=== PATIENT | female | born 1965 | race Hispanic/Latino ===

== ENCOUNTER 2021-04-22 16:59 | Inpatient (IN) | payer MEDICARE ==
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
[2021-04-23] MEDS ORDERED: NON-FORMULARY EACH (Acetaminophen [Tylenol] 325 MG Capsule) PO PRN (08:31)
[2021-04-23] MEDS ORDERED: INSULIN ASPART 100 UNIT/ML SQ SCH (08:45)
[2021-04-23] MEDS: ASPIRIN EC 81 MG TAB PO SCH (09:52)
[2021-04-23] MEDS: PANTOPRAZOLE 40 MG TAB PO SCH ×2 (09:52→21:21)
[2021-04-23] MEDS: MULTIVITAMINS,THER W-MINERALS TAB PO SCH (09:52)
[2021-04-23] MEDS: SERTRALINE 100 MG TAB PO SCH (09:52)
[2021-04-23] MEDS ORDERED: RAMIPRIL 10 MG PO SCH (10:00)
[2021-04-23] MEDS ORDERED: NON-FORMULARY EACH (Multivitamin With Minerals [Hair, Skin And Nails] 1 EACH Tablet) PO SCH (10:00)
[2021-04-23] MEDS: LISINOPRIL 20 MG TAB PO SCH (10:03)
--- NOTE | 2021-04-23 13:46 | Consultation ---
History of Present Illness - Reason for Consult Consult date: 04/23/21 DM Requesting physician: CARISA VALDERRAMA - History of Present Illness Patient is 56 year old female current admitted for Bipolar disorder, paranoia, presented to referring facility with fatigue, auditory hallucination, visual hallucination, was felt to be delusional, Multiple medication, Allergies. Patient has a history of HTN, DM, HYPERLIPIDEMIA, HYPOTHYRODISIM. We are requested to come evaluate the patient. She denies any chest pain, shortness of breath. Past History Past Medical History: hyperthyroidism, hypertension, hyperlipidemia Past Surgical History: Other Social history: no significant social history Family history: no significant family history Medications and Allergies Allergies Allergy/AdvReac Type Severity Reaction Status Date / Time ragweed pollen Allergy Unknown Verified 04/23/21 00:58 acetaminophen [From Percocet] AdvReac Unknown Verified 04/23/21 00:58 amoxicillin AdvReac Unknown Verified 04/23/21 00:58 aripiprazole [From Abilify] AdvReac Unknown Verified 04/23/21 00:58 cephalexin AdvReac Unknown Verified 04/23/21 00:58 heparin AdvReac Unknown Verified 04/23/21 00:58 lithium AdvReac Unknown Verified 04/23/21 00:58 olanzapine [From Zyprexa] AdvReac Unknown Verified 04/23/21 00:58 oxcarbazepine AdvReac Unknown Verified 04/23/21 00:58 [From Trileptal] oxycodone [From Percocet] AdvReac Unknown Verified 04/23/21 00:58 Penicillins AdvReac Unknown Verified 04/23/21 00:58 quetiapine [From Seroquel] AdvReac Unknown Verified 04/23/21 00:58 risperidone AdvReac Unknown Verified 04/23/21 00:58 valacyclovir [From Valtrex] AdvReac Unknown Verified 04/23/21 00:58 ziprasidone [From Geodon] AdvReac Unknown Verified 04/23/21 00:58 Home Medications Medication Instructions Recorded Confirmed Last Taken Type Acetaminophen [Tylenol] 650 mg PO Q6HR PRN 04/23/21 04/23/21 Unknown History Aspirin EC [Halfprin EC] 81 mg PO QDAY 04/23/21 04/23/21 Unknown History AtorvaSTATin [Lipitor] 20 mg PO QHS 04/23/21 04/23/21 Unknown History Divalproex ER [DepaKOTE ER] 500 mg PO TID 04/23/21 04/23/21 Unknown History Insulin Aspart 100 unit SQ UNK 04/23/21 04/23/21 Unknown History Multivitamin with Minerals [Hair, 1 each PO DAILY 04/23/21 04/23/21 Unknown History Skin and Nails] Pantoprazole [Protonix] 40 mg PO BID 04/23/21 04/23/21 Unknown History Sertraline [Zoloft] 100 mg PO QDAY 04/23/21 04/23/21 Unknown History ramipriL [Ramipril] 10 mg PO DAILY 04/23/21 04/23/21 Unknown History Active Meds: Active Medications Acetaminophen (Acetaminophen 325 Mg Tab) 650 mg PO Q6H PRN PRN Reason: Pain , Severe (7-10) Aspirin (Aspirin Ec 81 Mg Tab) 81 mg PO QDAY [facility] Last Admin: 04/23/21 09:52 Dose: 81 mg Documented by: Atorvastatin Calcium (Atorvastatin 20 Mg Tab) 20 mg PO QHS [facility] Divalproex Sodium (Divalproex Er 500 Mg Tab) 500 mg PO TID [facility] Lisinopril (Lisinopril 20 Mg Tab) 20 mg PO QDAY [facility] Last Admin: 04/23/21 10:03 Dose: 20 mg Documented by: Miscellaneous Medication (Insulin Aspart [Insulin Aspart]) 100 unit SQ UNK [facility] Multivitamins/Minerals (Multivitamins,Ther W-Minerals Tab) 1 each PO QDAY [facility] Last Admin: 04/23/21 09:52 Dose: 1 each Documented by: Pantoprazole Sodium (Pantoprazole 40 Mg Tab) 40 mg PO BID [facility] Last Admin: 04/23/21 09:52 Dose: Not Given Documented by: Sertraline HCl (Sertraline 100 Mg Tab) 100 mg PO QDAY [facility] Last Admin: 04/23/21 09:52 Dose: 100 mg Documented by: Review of Systems All systems: negative Exam - Physical Exam Narrative exam: VITAL SIGNS: Reviewed. GENERAL: The patient appears normally developed, Vital signs as documented. HEAD: No signs of head trauma. EYES: Pupils are equal. Extraocular motions intact. EARS: Hearing grossly intact. MOUTH: Oropharynx is normal. NECK: No adenopathy, no JVD. CHEST: Chest with clear breath sounds bilaterally. No wheezes, rales, or rhonchi. CARDIAC: Regular rate and rhythm. S1 and S2, without murmurs, gallops, or rubs. VASCULAR: No Edema. Peripheral pulses normal and equal in all extremities. ABDOMEN: Soft, non tender and non distended. No rebound or guarding, and no masses palpated. Bowel Sounds normal. MUSCULOSKELETAL: Good range of motion of all major joints. Extremities without clubbing, cyanosis or edema. NEUROLOGIC EXAM: Alert and oriented x 3 No focal sensory or strength deficits. Speech normal. Follows commands. PSYCHIATRIC: Mood normal. SKIN: detail exam as documented in skin assessment - Constitutional Vitals: Temp Pulse Resp BP Pulse Ox 99.0 F 72 20 168/81 93 04/23/21 07:40 04/23/21 10:03 04/23/21 07:40 04/23/21 10:03 04/23/21 07:40 General appearance: Present: no acute distress Results - Labs Labs: Abnormal lab results 04/23/21 04/23/21 Range/Units 06:04 11:37 POC Glucose 206 H 238 H (70-105) mg/dL Assessment and Plan Patient is 56 year old female current admitted for Bipolar disorder, paranoia, presented to referring facility with fatigue, auditory hallucination, visual hallucination, was felt to be delusional, Multiple medication, Allergies. Patient has a history of HTN, DM, HYPERLIPIDEMIA, HYPOTHYRODISIM. We are requested to come evaluate the patient. She denies any chest pain, shortness of breath. Hypertension, Diabetes mellitus, hyperlipidemia, hypothyroidism Acute psychosis plan Continue supportive care, Continue home medications Monitor Blood sugar closely Patient denies hx of Hypothyrodisim, Will check TSH, FREE T4
[2021-04-23] MEDS ORDERED: DEXTROSE 50% IN WATER (25GM) 50 ML SYRINGE IV PRN (14:00)
[2021-04-23] MEDS: DIVALPROEX ER 500 MG TAB PO SCH ×2 (14:05→20:45)
[2021-04-23] MEDS: ACETAMINOPHEN 325 MG TAB PO PRN (14:45)
[2021-04-23] MEDS: INSULIN LISPRO 100 UNIT/ML SUB-Q SCH ×2 (16:33→22:00)
[2021-04-24] MEDS: INSULIN LISPRO 100 UNIT/ML SUB-Q SCH ×4 (08:44→23:15)
[2021-04-24] MEDS: INSULIN NPH/REGULAR 70/30 INJ SUB-Q SCH ×2 (08:45→17:04)
--- NOTE | 2021-04-24 08:46 | Progress Note ---
Subjective Date of service: 04/24/21 Subjective Comment: 04/24/21: The patient is seen in bed this morning,she reports feeling weak. She continues to present with looseness of association. She denies any current suicidal/homicidal ideation and denies hallucinations. REVIEW OF SYSTEMS Constitutional: Negative for weight loss ENT: Negative for stridor Respiratory: Negative for cough or hemoptysis All other systems reviewed and are negative MENTAL STATUS EXAMINATION General Appearance and Behavior: Age appropriate, wearing appropriate clothes, good eye contact, anxious and cooperative Mood: paranoid Affect and affective range: congruent with stated mood Thought Process: looseness of association Thought Content: Not suicidal Speech:Normal Suicidal Ideation: Denies Homicidal Ideation: Denies Hallucinations: Denies Delusions: Yes Impulse Control: normal Insight and Judgment: Limited Memory/Cognition: Limited Attention: Normal Orientation: Alert, oriented Assessment (1)Bipolar Disorder (2) (3) Current Visit: Yes Status: Acute Treatment Plan Patient admitted for inpatient psychiatric evaluation, medication adjustment and close monitoring The patient's behavior, mood, sleep and appetite will be closely monitored. Patient enrolled in individual and group therapeutic sessions and encouraged to attend. Patient provided with a safe and structured environment. Patient's physical health needs will be addressed by the Hospitalist. Hospitalist Consulted Labs including CBC, CMP, Lipid profile and Hemoglobin A1C levels ordered for baseline reference Social Assessment will be completed and the Paper Supervisor will work with patient and family to ensure a suitable and safe disposition Medication adjustment will be made as clinically indicated Continue home meds Usual Wellness Jainism/Preservation: - Start Trazodone 50 mg po QHS & 50 mg po QHS PRN between 10 PM & 2 AM for insomnia - Start Melatonin 5 mg po QHS to promote circadian rhythm The patient agreed on the treatment plan, understood the risk, benefit, alternative treatment, potential consequence of no treatment, and gave informed consent. Estimated days:6 Post hospital care: primary care provider, psychiatric provider Case staffed with Dr. Simons Legal Status: Voluntary Reaction to Hospitalization: Accepting Medications and Allergies Medications and Allergies Allergies Allergy/AdvReac Type Severity Reaction Status Date / Time ragweed pollen Allergy Unknown Verified 04/23/21 00:58 acetaminophen [From Percocet] AdvReac Unknown Verified 04/23/21 00:58 amoxicillin AdvReac Unknown Verified 04/23/21 00:58 aripiprazole [From Abilify] AdvReac Unknown Verified 04/23/21 00:58 cephalexin AdvReac Unknown Verified 04/23/21 00:58 heparin AdvReac Unknown Verified 04/23/21 00:58 lithium AdvReac Unknown Verified 04/23/21 00:58 olanzapine [From Zyprexa] AdvReac Unknown Verified 04/23/21 00:58 oxcarbazepine AdvReac Unknown Verified 04/23/21 00:58 [From Trileptal] oxycodone [From Percocet] AdvReac Unknown Verified 04/23/21 00:58 Penicillins AdvReac Unknown Verified 04/23/21 00:58 quetiapine [From Seroquel] AdvReac Unknown Verified 04/23/21 00:58 risperidone AdvReac Unknown Verified 04/23/21 00:58 valacyclovir [From Valtrex] AdvReac Unknown Verified 04/23/21 00:58 ziprasidone [From Geodon] AdvReac Unknown Verified 04/23/21 00:58 Home Medications Medication Instructions Recorded Confirmed Last Taken Type Acetaminophen [Tylenol] 650 mg PO Q6HR PRN 04/23/21 04/23/21 Unknown History Aspirin EC [Halfprin EC] 81 mg PO QDAY 04/23/21 04/23/21 Unknown History AtorvaSTATin [Lipitor] 20 mg PO QHS 04/23/21 04/23/21 Unknown History Divalproex ER [DepaKOTE ER] 500 mg PO TID 04/23/21 04/23/21 Unknown History Insulin Aspart 100 unit SQ UNK 04/23/21 04/23/21 Unknown History Multivitamin with Minerals [Hair, 1 each PO DAILY 04/23/21 04/23/21 Unknown History Skin and Nails] Pantoprazole [Protonix] 40 mg PO BID 04/23/21 04/23/21 Unknown History Sertraline [Zoloft] 100 mg PO QDAY 04/23/21 04/23/21 Unknown History ramipriL [Ramipril] 10 mg PO DAILY 04/23/21 04/23/21 Unknown History Active Meds: Active Medications Acetaminophen (Acetaminophen 325 Mg Tab) 650 mg PO Q6H PRN PRN Reason: Pain , Severe (7-10) Last Admin: 04/23/21 14:45 Dose: 650 mg Documented by: Aspirin (Aspirin Ec 81 Mg Tab) 81 mg PO QDAY [facility] Last Admin: 04/23/21 09:52 Dose: 81 mg Documented by: Atorvastatin Calcium (Atorvastatin 20 Mg Tab) 20 mg PO QHS [facility] Last Admin: 04/23/21 21:21 Dose: 20 mg Documented by: Dextrose (Dextrose 50% In Water (25gm) 50 Ml Syringe) 50 ml IV Q30MIN PRN; Protocol PRN Reason: Hypoglycemia Divalproex Sodium (Divalproex Er 500 Mg Tab) 500 mg PO TID [facility] Last Admin: 04/23/21 20:45 Dose: 500 mg Documented by: Insulin Human Isoph/Insulin Regular (Insulin Nph/Regular 70/30 Inj) 15 unit SUB-Q BIDDIAB [facility] Insulin Human Lispro (Insulin Lispro 100 Unit/Ml) 0 unit SUB-Q ACHS [facility]; Protocol Last Admin: 04/23/21 22:00 Dose: 4 unit Documented by: Lisinopril (Lisinopril 20 Mg Tab) 20 mg PO QDAY [facility] Last Admin: 04/23/21 10:03 Dose: 20 mg Documented by: Multivitamins/Minerals (Multivitamins,Ther W-Minerals Tab) 1 each PO QDAY [facility] Last Admin: 04/23/21 09:52 Dose: 1 each Documented by: Pantoprazole Sodium (Pantoprazole 40 Mg Tab) 40 mg PO BID [facility] Last Admin: 04/23/21 21:21 Dose: 40 mg Documented by: Sertraline HCl (Sertraline 100 Mg Tab) 100 mg PO QDAY [facility] Last Admin: 04/23/21 09:52 Dose: 100 mg Documented by: Results - Results Labs/Vitals: Laboratory Last Values POC Glucose 225 mg/dL (70-105) H 04/24/21 06:20 Last Vital Signs Temp 98.0 F 04/23/21 22:00 Pulse 80 04/23/21 22:00 Resp 18 04/23/21 22:00 BP 155/83 04/23/21 22:00 Pulse Ox 95 04/23/21 22:00
[2021-04-24] MEDS: PANTOPRAZOLE 40 MG TAB PO SCH ×3 (09:19→21:31)
[2021-04-24] MEDS: DIVALPROEX ER 500 MG TAB PO SCH ×3 (09:19→21:27)
[2021-04-24] MEDS: LISINOPRIL 20 MG TAB PO SCH (09:19)
[2021-04-24] MEDS: ASPIRIN EC 81 MG TAB PO SCH (09:19)
[2021-04-24] MEDS: SERTRALINE 100 MG TAB PO SCH (09:19)
[2021-04-24] MEDS: MULTIVITAMINS,THER W-MINERALS TAB PO SCH (09:19)
[2021-04-24 09:20] LABS: Basophils % (Auto) 0.3 % (0.0-1.8); Eosinophils # (Auto) 0.1 K/mm3 (0.0-0.4); Eosinophils % (Auto) 1.7 % (0.0-4.3); Hematocrit 42.1 % (30.3-42.9); Hemoglobin 13.8 gm/dl (10.1-14.3); Lymphocytes # (Auto) 1.6 K/mm3 (1.2-5.4); Lymphocytes % (Auto) 36.9 % (13.4-35.0); Mean Corpuscular HGB Conc 33 % (30-34); Mean Corpuscular Volume 88 fl (79-97); Monocytes # (Auto) 0.4 K/mm3 (0.0-0.8); Monocytes % (Auto) 8.3 % (0.0-7.3); Platelet Count 218 K/mm3 (140-440); Red Blood Count 4.78 M/mm3 (3.65-5.03); Red Cell Distribution Width 13.8 % (13.2-15.2)
[2021-04-24 09:47] LABS: Alanine Aminotransferase 10 units/L (7-56); Albumin 4.2 g/dL (3.9-5); BUN/Creatinine Ratio 20; Blood Urea Nitrogen 10 mg/dL (7-17); Calcium 9.5 mg/dL (8.4-10.2); Chol/HDL Ratio 6.03 %; HDL Cholesterol 33 mg/dL (40-59); Hemolysis Index 5; LDL Cholesterol,Direct 128 mg/dL (50-130)
--- NOTE | 2021-04-24 12:22 | Progress Note ---
Assessment and Plan Assessment and plan: Patient is 56 year old female current admitted for Bipolar disorder, paranoia, presented to referring facility with fatigue, auditory hallucination, visual hallucination, was felt to be delusional, Multiple medication, Allergies. Patient has a history of HTN, DM, HYPERLIPIDEMIA, HYPOTHYRODISIM. We are re quested to come evaluate the patient. She denies any chest pain, shortness of breath. Hypertension, Diabetes mellitus, hyperlipidemia, hypothyroidism Acute psychosis plan 04/24: Oral and intermediate to long-acting insulin for better blood sugar control continue supportive care, Continue home medications Monitor Blood sugar closely Patient denies hx of Hypothyrodisim, Will check TSH, FREE T4 History Interval history: patient seen and examined, no new complaints Hospitalist Physical - Physical exam Narrative exam: VITAL SIGNS: Reviewed. GENERAL: The patient appears normally developed, Vital signs as documented. HEAD: No signs of head trauma. EYES: Pupils are equal. Extraocular motions intact. EARS: Hearing grossly intact. MOUTH: Oropharynx is normal. NECK: No adenopathy, no JVD. CHEST: Chest with clear breath sounds bilaterally. No wheezes, rales, or rho nchi. CARDIAC: Regular rate and rhythm. S1 and S2, without murmurs, gallops, or rubs. VASCULAR: No Edema. Peripheral pulses normal and equal in all extremities. ABDOMEN: Soft, non tender and non distended. No rebound or guarding, and no masses palpated. Bowel Sounds normal. MUSCULOSKELETAL: Good range of motion of all major joints. Extremities without clubbing, cyanosis or edema. NEUROLOGIC EXAM: Alert and oriented x 3 No focal sensory or strength deficits. Speech normal. Follows commands. PSYCHIATRIC: Mood normal. SKIN: detail exam as documented in skin assessment - Constitutional Vitals: Temp Pulse Resp BP Pulse Ox 98.7 F 69 18 153/81 93 04/24/21 09:16 04/24/21 09:19 04/24/21 09:16 04/24/21 09:19 04/24/21 09:16 General appearance: Present: no acute distress Results - Labs CBC & Chem 7: 04/24/21 08:37 04/24/21 08:37 Labs: Laboratory Last Values WBC 4.3 K/mm3 (4.5-11.0) L 04/24/21 08:37 RBC 4.78 M/mm3 (3.65-5.03) 04/24/21 08:37 Hgb 13.8 gm/dl (10.1-14.3) 04/24/21 08:37 Hct 42.1 % (30.3-42.9) 04/24/21 08:37 MCV 88 fl (79-97) 04/24/21 08:37 MCH 29 pg (28-32) 04/24/21 08:37 MCHC 33 % (30-34) 04/24/21 08:37 RDW 13.8 % (13.2-15.2) 04/24/21 08:37 Plt Count 218 K/mm3 (140-440) 04/24/21 08:37 Lymph % (Auto) 36.9 % (13.4-35.0) H 04/24/21 08:37 Greene % (Auto) 8.3 % (0.0-7.3) H 04/24/21 08:37 Eos % (Auto) 1.7 % (0.0-4.3) 04/24/21 08:37 Baso % (Auto) 0.3 % (0.0-1.8) 04/24/21 08:37 Lymph # (Auto) 1.6 K/mm3 (1.2-5.4) 04/24/21 08:37 Greene # (Auto) 0.4 K/mm3 (0.0-0.8) 04/24/21 08:37 Eos # (Auto) 0.1 K/mm3 (0.0-0.4) 04/24/21 08:37 Baso # (Auto) 0.0 K/mm3 (0.0-0.1) 04/24/21 08:37 Seg Neutrophils % 52.8 % (40.0-70.0) 04/24/21 08:37 Seg Neutrophils # 2.3 K/mm3 (1.8-7.7) 04/24/21 08:37 Sodium 139 mmol/L (137-145) 04/24/21 08:37 Potassium 4.3 mmol/L (3.6-5.0) 04/24/21 08:37 Chloride 100.3 mmol/L (98-107) 04/24/21 08:37 Carbon Dioxide 24 mmol/L (22-30) 04/24/21 08:37 Anion Gap 19 mmol/L 04/24/21 08:37 BUN 10 mg/dL (7-17) 04/24/21 08:37 Creatinine 0.5 mg/dL (0.6-1.2) L 04/24/21 08:37 Estimated GFR > 60 ml/min 04/24/21 08:37 BUN/Creatinine Ratio 20 % 04/24/21 08:37 Glucose 250 mg/dL (65-100) H 04/24/21 08:37 POC Glucose 290 mg/dL (70-105) H 04/24/21 10:55 Hemoglobin A1c 7.5 % (4-6) H 04/24/21 08:37 Calcium 9.5 mg/dL (8.4-10.2) 04/24/21 08:37 Total Bilirubin 0.40 mg/dL (0.1-1.2) 04/24/21 08:37 AST 9 units/L (5-40) 04/24/21 08:37 ALT 10 units/L (7-56) 04/24/21 08:37 Alkaline Phosphatase 79 units/L (35-129) 04/24/21 08:37 Total Protein 7.0 g/dL (6.3-8.2) 04/24/21 08:37 Albumin 4.2 g/dL (3.9-5) 04/24/21 08:37 Albumin/Globulin Ratio 1.5 % 04/24/21 08:37 Triglycerides 274 mg/dL (2-149) H 04/24/21 08:37 Cholesterol 199 mg/dL (50-199) 04/24/21 08:37 LDL Cholesterol Direct 128 mg/dL (50-130) 04/24/21 08:37 HDL Cholesterol 33 mg/dL (40-59) L 04/24/21 08:37 Cholesterol/HDL Ratio 6.03 % 04/24/21 08:37 TSH 4.160 mlU/mL (0.270-4.200) 04/24/21 08:37 Free T4 0.90 ng/dL (0.76-1.46) 04/24/21 08:37 Brown/IV: Voiding Method Toilet Active Medications - Current Medications Current Medications: Generic Name Dose Route Start Last Admin Trade Name Freq PRN Reason Stop Dose Admin Acetaminophen 650 mg 04/23/21 13:00 04/23/21 14:45 Acetaminophen 325 Mg Tab PO 650 mg Q6H PRN Administration Pain , Severe (7-10) Aspirin 81 mg 04/23/21 10:00 04/24/21 09:19 Aspirin Ec 81 Mg Tab PO 81 mg QDAY [facility] Administration Atorvastatin Calcium 20 mg 04/23/21 22:00 04/23/21 21:21 Atorvastatin 20 Mg Tab PO 20 mg QHS [facility] Administration Dextrose 50 ml 04/23/21 14:00 Dextrose 50% In Water (25gm) 50 Ml Syringe IV Q30MIN PRN Hypoglycemia Protocol Divalproex Sodium 500 mg 04/23/21 14:00 04/24/21 09:19 Divalproex Er 500 Mg Tab PO 500 mg TID [facility] Administration Insulin Human Isoph/Insulin Regular 15 unit 04/24/21 09:00 04/24/21 08:45 Insulin Nph/Regular 70/30 Inj SUB-Q 15 unit BIDDIAB [facility] Administration Insulin Human Lispro 0 unit 04/23/21 16:30 04/24/21 08:44 Insulin Lispro 100 Unit/Ml SUB-Q 2 unit ACHS [facility] Administration Protocol Lisinopril 20 mg 04/23/21 10:00 04/24/21 09:19 Lisinopril 20 Mg Tab PO 20 mg QDAY [facility] Administration Multivitamins/Minerals 1 each 04/23/21 10:00 04/24/21 09:19 Multivitamins,Ther W-Minerals Tab PO 1 each QDAY [facility] Administration Pantoprazole Sodium 40 mg 04/23/21 10:00 04/24/21 09:19 Pantoprazole 40 Mg Tab PO 40 mg BID [facility] Administration Sertraline HCl 100 mg 04/23/21 10:00 04/24/21 09:19 Sertraline 100 Mg Tab PO 100 mg QDAY [facility] Administration Trazodone HCl 50 mg 04/24/21 22:00 Trazodone 50 Mg Tab PO QHS [facility]
[2021-04-24 14:49] LABS: Hepatitis C Virus Antibody Non-Reactive (NonReactive)
[2021-04-24 14:52] LABS: Hepatitis B Surface Antigen Nonreactive (Negative)
[2021-04-24] MEDS: ACETAMINOPHEN 325 MG TAB PO PRN (17:03)
[2021-04-24] MEDS: traZODone 50 MG TAB PO SCH (21:27)
[2021-04-25] MEDS: DIVALPROEX ER 500 MG TAB PO SCH ×3 (07:42→20:30)
[2021-04-25] MEDS: INSULIN LISPRO 100 UNIT/ML SUB-Q SCH ×4 (07:42→21:28)
[2021-04-25] MEDS: MULTIVITAMINS,THER W-MINERALS TAB PO SCH (10:01)
[2021-04-25] MEDS: SERTRALINE 100 MG TAB PO SCH (10:01)
[2021-04-25] MEDS: PANTOPRAZOLE 40 MG TAB PO SCH ×2 (10:01→21:27)
[2021-04-25] MEDS: ASPIRIN EC 81 MG TAB PO SCH (10:01)
[2021-04-25] MEDS: LISINOPRIL 20 MG TAB PO SCH (10:02)
[2021-04-25] MEDS: INSULIN NPH/REGULAR 70/30 INJ SUB-Q SCH ×2 (10:02→17:26)
--- NOTE | 2021-04-25 12:08 | Progress Note ---
Subjective Date of service: 04/25/21 Principal diagnosis: Bipolar Subjective Comment: The patient was seen today. She is hyperverbal and her speech is pressured. The patient says she is from [facility] and doesn't know why they had her admitted here. She denies SI/HI or hallucinations of any kind. The patient says they told her she was delusional, but states "delusions are false ideas, she has facts." Staff says the patient has been refusing her meds and thinks she's being poisoned, due to paranoia and suspicion. The patient's delusions is interrupting her plan of care and therefore, pose a risk to the patient's mental health. Will start an antipsychotic to treat delusions. REVIEW OF SYSTEMS Constitutional: Negative for weight loss ENT: Negative for stridor Respiratory: Negative for cough or hemoptysis All other systems reviewed and are negative MENTAL STATUS EXAMINATION General Appearance and Behavior: Age appropriate, wearing appropriate clothes, good eye contact, anxious and cooperative Mood: paranoid Affect and affective range: congruent with stated mood Thought Process: looseness of association Thought Content: Not suicidal Speech:Normal Suicidal Ideation: Denies Homicidal Ideation: Denies Hallucinations: Denies Delusions: Yes Impulse Control: normal Insight and Judgment: Limited Memory/Cognition: Limited Attention: Normal Orientation: Alert, oriented Assessment (1)Bipolar Disorder Current Visit: Yes Status: Acute Treatment Plan Patient admitted for inpatient psychiatric evaluation, medication adjustment and close monitoring The patient's behavior, mood, sleep and appetite will be closely monitored. Patient enrolled in individual and group therapeutic sessions and encouraged to attend. Patient provided with a safe and structured environment. Patient's physical health needs will be addressed by the Hospitalist. Hospitalist Consulted Labs including CBC, CMP, Lipid profile and Hemoglobin A1C levels ordered for baseline reference Valproic level 04/27 Social Assessment will be completed and the Friction Saw Operator will work with patient and family to ensure a suitable and safe disposition Medication adjustment will be made as clinically indicated Start Abilify 5mg po daily to decrease delusions/paranoia Usual Wellness [employer]/Preservation: - Start Trazodone 50 mg po QHS & 50 mg po QHS PRN between 10 PM & 2 AM for insomnia - Start Melatonin 5 mg po QHS to promote circadian rhythm The patient agreed on the treatment plan, understood the risk, benefit, alternative treatment, potential consequence of no treatment, and gave informed consent. Estimated days:6 Post hospital care: primary care provider, psychiatric provider Case staffed with Dr. Simons Medications and Allergies Allergies Allergy/AdvReac Type Severity Reaction Status Date / Time ragweed pollen Allergy Unknown Verified 04/23/21 00:58 acetaminophen [From Percocet] AdvReac Unknown Verified 04/23/21 00:58 amoxicillin AdvReac Unknown Verified 04/23/21 00:58 aripiprazole [From Abilify] AdvReac Unknown Verified 04/23/21 00:58 cephalexin AdvReac Unknown Verified 04/23/21 00:58 heparin AdvReac Unknown Verified 04/23/21 00:58 lithium AdvReac Unknown Verified 04/23/21 00:58 olanzapine [From Zyprexa] AdvReac Unknown Verified 04/23/21 00:58 oxcarbazepine AdvReac Unknown Verified 04/23/21 00:58 [From Trileptal] oxycodone [From Percocet] AdvReac Unknown Verified 04/23/21 00:58 Penicillins AdvReac Unknown Verified 04/23/21 00:58 quetiapine [From Seroquel] AdvReac Unknown Verified 04/23/21 00:58 risperidone AdvReac Unknown Verified 04/23/21 00:58 valacyclovir [From Valtrex] AdvReac Unknown Verified 04/23/21 00:58 ziprasidone [From Geodon] AdvReac Unknown Verified 04/23/21 00:58 Home Medications Medication Instructions Recorded Confirmed Last Taken Type Acetaminophen [Tylenol] 650 mg PO Q6HR PRN 04/23/21 04/23/21 Unknown History Aspirin EC [Halfprin EC] 81 mg PO QDAY 04/23/21 04/23/21 Unknown History AtorvaSTATin [Lipitor] 20 mg PO QHS 04/23/21 04/23/21 Unknown History Divalproex ER [DepaKOTE ER] 500 mg PO TID 04/23/21 04/23/21 Unknown History Insulin Aspart 100 unit SQ UNK 04/23/21 04/23/21 Unknown History Multivitamin with Minerals [Hair, 1 each PO DAILY 04/23/21 04/23/21 Unknown History Skin and Nails] Pantoprazole [Protonix] 40 mg PO BID 04/23/21 04/23/21 Unknown History Sertraline [Zoloft] 100 mg PO QDAY 04/23/21 04/23/21 Unknown History ramipriL [Ramipril] 10 mg PO DAILY 04/23/21 04/23/21 Unknown History Active Meds: Active Medications Acetaminophen (Acetaminophen 325 Mg Tab) 650 mg PO Q6H PRN PRN Reason: Pain , Severe (7-10) Last Admin: 04/24/21 17:03 Dose: 650 mg Documented by: Aspirin (Aspirin Ec 81 Mg Tab) 81 mg PO QDAY [facility] Last Admin: 04/25/21 10:01 Dose: 81 mg Documented by: Atorvastatin Calcium (Atorvastatin 20 Mg Tab) 20 mg PO QHS [facility] Last Admin: 04/24/21 21:27 Dose: 20 mg Documented by: Dextrose (Dextrose 50% In Water (25gm) 50 Ml Syringe) 50 ml IV Q30MIN PRN; Protocol PRN Reason: Hypoglycemia Divalproex Sodium (Divalproex Er 500 Mg Tab) 500 mg PO TID [facility] Last Admin: 04/25/21 07:42 Dose: 500 mg Documented by: Insulin Human Isoph/Insulin Regular (Insulin Nph/Regular 70/30 Inj) 15 unit SUB-Q BIDDIAB [facility] Last Admin: 04/25/21 10:02 Dose: 15 unit Documented by: Insulin Human Lispro (Insulin Lispro 100 Unit/Ml) 0 unit SUB-Q [facility]; Protocol Last Admin: 04/25/21 12:04 Dose: 2 unit Documented by: Lisinopril (Lisinopril 20 Mg Tab) 20 mg PO QDAY [facility] Last Admin: 04/25/21 10:02 Dose: 20 mg Documented by: Multivitamins/Minerals (Multivitamins,Ther W-Minerals Tab) 1 each PO QDAY [facility] Last Admin: 04/25/21 10:01 Dose: 1 each Documented by: Pantoprazole Sodium (Pantoprazole 40 Mg Tab) 40 mg PO BID [facility] Last Admin: 04/25/21 10:01 Dose: 40 mg Documented by: Sertraline HCl (Sertraline 100 Mg Tab) 100 mg PO QDAY [facility] Last Admin: 04/25/21 10:01 Dose: 100 mg Documented by: Trazodone HCl (Trazodone 50 Mg Tab) 50 mg PO QHS [facility] Last Admin: 04/24/21 21:27 Dose: 50 mg Documented by: Results - Results Labs/Vitals: Laboratory Last Values WBC 4.3 K/mm3 (4.5-11.0) L 04/24/21 08:37 RBC 4.78 M/mm3 (3.65-5.03) 04/24/21 08:37 Hgb 13.8 gm/dl (10.1-14.3) 04/24/21 08:37 Hct 42.1 % (30.3-42.9) 04/24/21 08:37 MCV 88 fl (79-97) 04/24/21 08:37 MCH 29 pg (28-32) 04/24/21 08:37 MCHC 33 % (30-34) 04/24/21 08:37 RDW 13.8 % (13.2-15.2) 04/24/21 08:37 Plt Count 218 K/mm3 (140-440) 04/24/21 08:37 Lymph % (Auto) 36.9 % (13.4-35.0) H 04/24/21 08:37 [place] % (Auto) 8.3 % (0.0-7.3) H 04/24/21 08:37 Eos % (Auto) 1.7 % (0.0-4.3) 04/24/21 08:37 Baso % (Auto) 0.3 % (0.0-1.8) 04/24/21 08:37 Lymph # (Auto) 1.6 K/mm3 (1.2-5.4) 04/24/21 08:37 [place] # (Auto) 0.4 K/mm3 (0.0-0.8) 04/24/21 08:37 Eos # (Auto) 0.1 K/mm3 (0.0-0.4) 04/24/21 08:37 Baso # (Auto) 0.0 K/mm3 (0.0-0.1) 04/24/21 08:37 Seg Neutrophils % 52.8 % (40.0-70.0) 04/24/21 08:37 Seg Neutrophils # 2.3 K/mm3 (1.8-7.7) 04/24/21 08:37 Sodium 139 mmol/L (137-145) 04/24/21 08:37 Potassium 4.3 mmol/L (3.6-5.0) 04/24/21 08:37 Chloride 100.3 mmol/L (98-107) 04/24/21 08:37 Carbon Dioxide 24 mmol/L (22-30) 04/24/21 08:37 Anion Gap 19 mmol/L 04/24/21 08:37 BUN 10 mg/dL (7-17) 04/24/21 08:37 Creatinine 0.5 mg/dL (0.6-1.2) L 04/24/21 08:37 Estimated GFR > 60 ml/min 04/24/21 08:37 BUN/Creatinine Ratio 20 % 04/24/21 08:37 Glucose 250 mg/dL (65-100) H 04/24/21 08:37 POC Glucose 233 mg/dL (70-105) H 04/25/21 11:36 Hemoglobin A1c 7.5 % (4-6) H 04/24/21 08:37 Calcium 9.5 mg/dL (8.4-10.2) 04/24/21 08:37 Total Bilirubin 0.40 mg/dL (0.1-1.2) 04/24/21 08:37 AST 9 units/L (5-40) 04/24/21 08:37 ALT 10 units/L (7-56) 04/24/21 08:37 Alkaline Phosphatase 79 units/L (35-129) 04/24/21 08:37 Total Protein 7.0 g/dL (6.3-8.2) 04/24/21 08:37 Albumin 4.2 g/dL (3.9-5) 04/24/21 08:37 Albumin/Globulin Ratio 1.5 % 04/24/21 08:37 Triglycerides 274 mg/dL (2-149) H 04/24/21 08:37 Cholesterol 199 mg/dL (50-199) 04/24/21 08:37 LDL Cholesterol Direct 128 mg/dL (50-130) 04/24/21 08:37 HDL Cholesterol 33 mg/dL (40-59) L 04/24/21 08:37 Cholesterol/HDL Ratio 6.03 % 04/24/21 08:37 TSH 4.160 mlU/mL (0.270-4.200) 04/24/21 08:37 Free T4 0.90 ng/dL (0.76-1.46) 04/24/21 08:37 Hepatitis A IgM Ab Non-reactive (NonReactive) 04/24/21 08:37 Hep Bs Antigen Nonreactive (Negative) 04/24/21 08:37 Hep B Core IgM Ab Non-reactive (NonReactive) 04/24/21 08:37 Hepatitis C Antibody Non-reactive (NonReactive) 04/24/21 08:37 Last Vital Signs Temp 98.2 F 04/25/21 09:45 Pulse 74 04/25/21 10:02 Resp 18 04/25/21 09:45 BP 146/81 04/25/21 10:02 Pulse Ox 94 04/25/21 09:45
[2021-04-25] MEDS ORDERED: ARIPiprazole 5 MG TAB PO SCH (14:00)
[2021-04-25] MEDS: ACETAMINOPHEN 325 MG TAB PO PRN (19:00)
[2021-04-25] MEDS: traZODone 50 MG TAB PO SCH (21:27)
[2021-04-26] MEDS: INSULIN LISPRO 100 UNIT/ML SUB-Q SCH ×4 (08:30→21:23)
--- NOTE | 2021-04-26 09:47 | Progress Note ---
Subjective Date of service: 04/26/21 Principal diagnosis: Bipolar Subjective Comment: The patient was seen today. She is more calm today than yesterday. She says she feels she has a UTI. The patient denies SI/HI or hallucinations of any kind. REVIEW OF SYSTEMS Constitutional: Negative for weight loss ENT: Negative for stridor Respiratory: Negative for cough or hemoptysis All other systems reviewed and are negative MENTAL STATUS EXAMINATION General Appearance and Behavior: Age appropriate, wearing appropriate clothes, good eye contact, anxious and cooperative Mood: paranoid Affect and affective range: congruent with stated mood Thought Process: looseness of association Thought Content: Not suicidal Speech:Normal Suicidal Ideation: Denies Homicidal Ideation: Denies Hallucinations: Denies Delusions: Yes Impulse Control: normal Insight and Judgment: Limited Memory/Cognition: Limited Attention: Normal Orientation: Alert, oriented Assessment (1)Bipolar Disorder Current Visit: Yes Status: Acute Treatment Plan Patient admitted for inpatient psychiatric evaluation, medication adjustment and close monitoring The patient's behavior, mood, sleep and appetite will be closely monitored. Patient enrolled in individual and group therapeutic sessions and encouraged to attend. Patient provided with a safe and structured environment. Patient's physical health needs will be addressed by the Hospitalist. Hospitalist Consulted Labs including CBC, CMP, Lipid profile and Hemoglobin A1C levels ordered for baseline reference Valproic level 04/27 UA ordered 04/26 Social Assessment will be completed and the Test Pilot will work with patient and family to ensure a suitable and safe disposition Medication adjustment will be made as clinically indicated Start Abilify 5mg po daily to decrease delusions/paranoia yesterday Usual Wellness [employer]/Preservation: - Start Trazodone 50 mg po QHS & 50 mg po QHS PRN between 10 PM & 2 AM for insomnia - Start Melatonin 5 mg po QHS to promote circadian rhythm The patient agreed on the treatment plan, understood the risk, benefit, alternative treatment, potential consequence of no treatment, and gave informed consent. Estimated days:6 Post hospital care: primary care provider, psychiatric provider Case staffed with Dr. Simons Medications and Allergies Allergies Allergy/AdvReac Type Severity Reaction Status Date / Time ragweed pollen Allergy Unknown Verified 04/23/21 00:58 acetaminophen [From Percocet] AdvReac Unknown Verified 04/23/21 00:58 amoxicillin AdvReac Unknown Verified 04/23/21 00:58 aripiprazole [From Abilify] AdvReac Unknown Verified 04/23/21 00:58 cephalexin AdvReac Unknown Verified 04/23/21 00:58 heparin AdvReac Unknown Verified 04/23/21 00:58 lithium AdvReac Unknown Verified 04/23/21 00:58 olanzapine [From Zyprexa] AdvReac Unknown Verified 04/23/21 00:58 oxcarbazepine AdvReac Unknown Verified 04/23/21 00:58 [From Trileptal] oxycodone [From Percocet] AdvReac Unknown Verified 04/23/21 00:58 Penicillins AdvReac Unknown Verified 04/23/21 00:58 quetiapine [From Seroquel] AdvReac Unknown Verified 04/23/21 00:58 risperidone AdvReac Unknown Verified 04/23/21 00:58 valacyclovir [From Valtrex] AdvReac Unknown Verified 04/23/21 00:58 ziprasidone [From Geodon] AdvReac Unknown Verified 04/23/21 00:58 Home Medications Medication Instructions Recorded Confirmed Last Taken Type Acetaminophen [Tylenol] 650 mg PO Q6HR PRN 04/23/21 04/23/21 Unknown History Aspirin EC [Halfprin EC] 81 mg PO QDAY 04/23/21 04/23/21 Unknown History AtorvaSTATin [Lipitor] 20 mg PO QHS 04/23/21 04/23/21 Unknown History Divalproex ER [DepaKOTE ER] 500 mg PO TID 04/23/21 04/23/21 Unknown History Insulin Aspart 100 unit SQ UNK 04/23/21 04/23/21 Unknown History Multivitamin with Minerals [Hair, 1 each PO DAILY 04/23/21 04/23/21 Unknown History Skin and Nails] Pantoprazole [Protonix] 40 mg PO BID 04/23/21 04/23/21 Unknown History Sertraline [Zoloft] 100 mg PO QDAY 04/23/21 04/23/21 Unknown History ramipriL [Ramipril] 10 mg PO DAILY 04/23/21 04/23/21 Unknown History Active Meds: Active Medications Acetaminophen (Acetaminophen 325 Mg Tab) 650 mg PO Q6H PRN PRN Reason: Pain , Severe (7-10) Last Admin: 04/25/21 19:00 Dose: 650 mg Documented by: Aspirin (Aspirin Ec 81 Mg Tab) 81 mg PO QDAY [facility] Last Admin: 04/25/21 10:01 Dose: 81 mg Documented by: Atorvastatin Calcium (Atorvastatin 20 Mg Tab) 20 mg PO QHS [facility] Last Admin: 04/25/21 21:27 Dose: 20 mg Documented by: Dextrose (Dextrose 50% In Water (25gm) 50 Ml Syringe) 50 ml IV Q30MIN PRN; Protocol PRN Reason: Hypoglycemia Divalproex Sodium (Divalproex Er 500 Mg Tab) 500 mg PO TID [facility] Last Admin: 04/25/21 20:30 Dose: 500 mg Documented by: Insulin Human Isoph/Insulin Regular (Insulin Nph/Regular 70/30 Inj) 15 unit SUB-Q BIDDIAB [facility] Last Admin: 04/25/21 17:26 Dose: Not Given Documented by: Insulin Human Lispro (Insulin Lispro 100 Unit/Ml) 0 unit SUB-Q ACHS [facility]; Protocol Last Admin: 04/25/21 21:28 Dose: 2 unit Documented by: Lisinopril (Lisinopril 20 Mg Tab) 20 mg PO QDAY [facility] Last Admin: 04/25/21 10:02 Dose: 20 mg Documented by: Multivitamins/Minerals (Multivitamins,Ther W-Minerals Tab) 1 each PO QDAY [facility] Last Admin: 04/25/21 10:01 Dose: 1 each Documented by: Pantoprazole Sodium (Pantoprazole 40 Mg Tab) 40 mg PO BID [facility] Last Admin: 04/25/21 21:27 Dose: Not Given Documented by: Sertraline HCl (Sertraline 100 Mg Tab) 100 mg PO QDAY [facility] Last Admin: 04/25/21 10:01 Dose: 100 mg Documented by: Trazodone HCl (Trazodone 50 Mg Tab) 50 mg PO QHS [facility] Last Admin: 04/25/21 21:27 Dose: Not Given Documented by: Results - Results Labs/Vitals: Laboratory Last Values WBC 4.3 K/mm3 (4.5-11.0) L 04/24/21 08:37 RBC 4.78 M/mm3 (3.65-5.03) 04/24/21 08:37 Hgb 13.8 gm/dl (10.1-14.3) 04/24/21 08:37 Hct 42.1 % (30.3-42.9) 04/24/21 08:37 MCV 88 fl (79-97) 04/24/21 08:37 MCH 29 pg (28-32) 04/24/21 08:37 MCHC 33 % (30-34) 04/24/21 08:37 RDW 13.8 % (13.2-15.2) 04/24/21 08:37 Plt Count 218 K/mm3 (140-440) 04/24/21 08:37 Lymph % (Auto) 36.9 % (13.4-35.0) H 04/24/21 08:37 [place] % (Auto) 8.3 % (0.0-7.3) H 04/24/21 08:37 Eos % (Auto) 1.7 % (0.0-4.3) 04/24/21 08:37 Baso % (Auto) 0.3 % (0.0-1.8) 04/24/21 08:37 Lymph # (Auto) 1.6 K/mm3 (1.2-5.4) 04/24/21 08:37 [place] # (Auto) 0.4 K/mm3 (0.0-0.8) 04/24/21 08:37 Eos # (Auto) 0.1 K/mm3 (0.0-0.4) 04/24/21 08:37 Baso # (Auto) 0.0 K/mm3 (0.0-0.1) 04/24/21 08:37 Seg Neutrophils % 52.8 % (40.0-70.0) 04/24/21 08:37 Seg Neutrophils # 2.3 K/mm3 (1.8-7.7) 04/24/21 08:37 Sodium 139 mmol/L (137-145) 04/24/21 08:37 Potassium 4.3 mmol/L (3.6-5.0) 04/24/21 08:37 Chloride 100.3 mmol/L (98-107) 04/24/21 08:37 Carbon Dioxide 24 mmol/L (22-30) 04/24/21 08:37 Anion Gap 19 mmol/L 04/24/21 08:37 BUN 10 mg/dL (7-17) 04/24/21 08:37 Creatinine 0.5 mg/dL (0.6-1.2) L 04/24/21 08:37 Estimated GFR > 60 ml/min 04/24/21 08:37 BUN/Creatinine Ratio 20 % 04/24/21 08:37 Glucose 250 mg/dL (65-100) H 04/24/21 08:37 POC Glucose 216 mg/dL (70-105) H 04/25/21 20:01 Hemoglobin A1c 7.5 % (4-6) H 04/24/21 08:37 Calcium 9.5 mg/dL (8.4-10.2) 04/24/21 08:37 Total Bilirubin 0.40 mg/dL (0.1-1.2) 04/24/21 08:37 AST 9 units/L (5-40) 04/24/21 08:37 ALT 10 units/L (7-56) 04/24/21 08:37 Alkaline Phosphatase 79 units/L (35-129) 04/24/21 08:37 Total Protein 7.0 g/dL (6.3-8.2) 04/24/21 08:37 Albumin 4.2 g/dL (3.9-5) 04/24/21 08:37 Albumin/Globulin Ratio 1.5 % 04/24/21 08:37 Triglycerides 274 mg/dL (2-149) H 04/24/21 08:37 Cholesterol 199 mg/dL (50-199) 04/24/21 08:37 LDL Cholesterol Direct 128 mg/dL (50-130) 04/24/21 08:37 HDL Cholesterol 33 mg/dL (40-59) L 04/24/21 08:37 Cholesterol/HDL Ratio 6.03 % 04/24/21 08:37 TSH 4.160 mlU/mL (0.270-4.200) 04/24/21 08:37 Free T4 0.90 ng/dL (0.76-1.46) 04/24/21 08:37 Hepatitis A IgM Ab Non-reactive (NonReactive) 04/24/21 08:37 Hep Bs Antigen Nonreactive (Negative) 04/24/21 08:37 Hep B Core IgM Ab Non-reactive (NonReactive) 04/24/21 08:37 Hepatitis C Antibody Non-reactive (NonReactive) 04/24/21 08:37 Last Vital Signs Temp 98.1 F 04/25/21 20:00 Pulse 78 04/25/21 20:00 Resp 16 04/25/21 20:00 BP 114/71 04/25/21 20:00 Pulse Ox 96 04/25/21 20:00
[2021-04-26] MEDS: LISINOPRIL 20 MG TAB PO SCH ×2 (11:48→12:02)
[2021-04-26] MEDS: SERTRALINE 100 MG TAB PO SCH (11:48)
[2021-04-26] MEDS: DIVALPROEX ER 500 MG TAB PO SCH ×4 (11:48→21:21)
[2021-04-26] MEDS: MULTIVITAMINS,THER W-MINERALS TAB PO SCH (11:49)
[2021-04-26] MEDS: ASPIRIN EC 81 MG TAB PO SCH (11:49)
[2021-04-26] MEDS: PANTOPRAZOLE 40 MG TAB PO SCH ×4 (11:49→21:26)
[2021-04-26] MEDS: INSULIN NPH/REGULAR 70/30 INJ SUB-Q SCH ×2 (11:57→18:21)
[2021-04-26] MEDS: ACETAMINOPHEN 325 MG TAB PO PRN (18:12)
[2021-04-26] MEDS: traZODone 50 MG TAB PO SCH ×2 (21:22→21:27)
[2021-04-27] MEDS: SERTRALINE 100 MG TAB PO SCH (09:17)
[2021-04-27] MEDS: MULTIVITAMINS,THER W-MINERALS TAB PO SCH (09:18)
[2021-04-27] MEDS: DIVALPROEX ER 500 MG TAB PO SCH ×4 (09:18→20:50)
[2021-04-27] MEDS: INSULIN NPH/REGULAR 70/30 INJ SUB-Q SCH ×2 (09:18→18:05)
[2021-04-27] MEDS: ASPIRIN EC 81 MG TAB PO SCH (09:18)
[2021-04-27] MEDS: INSULIN LISPRO 100 UNIT/ML SUB-Q SCH ×4 (09:19→22:10)
[2021-04-27] MEDS: PANTOPRAZOLE 40 MG TAB PO SCH ×2 (09:26→21:28)
[2021-04-27] MEDS: LISINOPRIL 20 MG TAB PO SCH (09:26)
--- NOTE | 2021-04-27 10:10 | Progress Note ---
Subjective Date of service: 04/27/21 Principal diagnosis: Bipolar Subjective Comment: The patient was seen today. She has a lot of somatic complaints, possibly delusions. She says her stomach is upset. She's also talking about she has bleeding gums due to an infected tooth. The patient still says she feels like she has a UTI. A UA was ordered yesterday. She also states her TBI causes her to "act like a mental health patient." She denies SI/HI or hallucinations of any kind. REVIEW OF SYSTEMS Constitutional: Negative for weight loss ENT: Negative for stridor Respiratory: Negative for cough or hemoptysis All other systems reviewed and are negative MENTAL STATUS EXAMINATION General Appearance and Behavior: Age appropriate, wearing appropriate clothes, good eye contact, anxious and cooperative Mood: paranoid Affect and affective range: congruent with stated mood Thought Process: looseness of association Thought Content: Not suicidal Speech:Normal Suicidal Ideation: Denies Homicidal Ideation: Denies Hallucinations: Denies Delusions: Yes Impulse Control: normal Insight and Judgment: Limited Memory/Cognition: Limited Attention: Normal Orientation: Alert, oriented Assessment (1)Bipolar Disorder Current Visit: Yes Status: Acute Treatment Plan Patient admitted for inpatient psychiatric evaluation, medication adjustment a nd close monitoring The patient's behavior, mood, sleep and appetite will be closely monitored. Patient enrolled in individual and group therapeutic sessions and encouraged to attend. Patient provided with a safe and structured environment. Patient's physical health needs will be addressed by the Hospitalist. Hospitalist Consulted Labs including CBC, CMP, Lipid profile and Hemoglobin A1C levels ordered for baseline reference Valproic level 04/27 UA ordered 04/26 Social Assessment will be completed and the Vocational Training Teacher will work with patient and family to ensure a suitable and safe disposition Medication adjustment will be made as clinically indicated was discontinued to stated allergy Abilify 5mg po daily Start Haldol 0.5mg po BID Usual Wellness [employer]: - Start Trazodone 50 mg po QHS & 50 mg po QHS PRN between 10 PM & 2 AM for insomnia - Start Melatonin 5 mg po QHS to promote circadian rhythm The patient agreed on the treatment plan, understood the risk, benefit, alternative treatment, potential consequence of no treatment, and gave informed consent. Estimated days:6 Post hospital care: primary care provider, psychiatric provider Case staffed with Dr. Simons Medications and Allergies Allergies Allergy/AdvReac Type Severity Reaction Status Date / Time ragweed pollen Allergy Unknown Verified 04/23/21 00:58 acetaminophen [From Percocet] AdvReac Unknown Verified 04/23/21 00:58 amoxicillin AdvReac Unknown Verified 04/23/21 00:58 aripiprazole [From Abilify] AdvReac Unknown Verified 04/23/21 00:58 cephalexin AdvReac Unknown Verified 04/23/21 00:58 heparin AdvReac Unknown Verified 04/23/21 00:58 lithium AdvReac Unknown Verified 04/23/21 00:58 olanzapine [From Zyprexa] AdvReac Unknown Verified 04/23/21 00:58 oxcarbazepine AdvReac Unknown Verified 04/23/21 00:58 [From Trileptal] oxycodone [From Percocet] AdvReac Unknown Verified 04/23/21 00:58 Penicillins AdvReac Unknown Verified 04/23/21 00:58 quetiapine [From Seroquel] AdvReac Unknown Verified 04/23/21 00:58 risperidone AdvReac Unknown Verified 04/23/21 00:58 valacyclovir [From Valtrex] AdvReac Unknown Verified 04/23/21 00:58 ziprasidone [From Geodon] AdvReac Unknown Verified 04/23/21 00:58 Home Medications Medication Instructions Recorded Confirmed Last Taken Type Acetaminophen [Tylenol] 650 mg PO Q6HR PRN 04/23/21 04/23/21 Unknown History Aspirin EC [Halfprin EC] 81 mg PO QDAY 04/23/21 04/23/21 Unknown History AtorvaSTATin [Lipitor] 20 mg PO QHS 04/23/21 04/23/21 Unknown History Divalproex ER [DepaKOTE ER] 500 mg PO TID 04/23/21 04/23/21 Unknown History Insulin Aspart 100 unit SQ UNK 04/23/21 04/23/21 Unknown History Multivitamin with Minerals [Hair, 1 each PO DAILY 04/23/21 04/23/21 Unknown History Skin and Nails] Pantoprazole [Protonix] 40 mg PO BID 04/23/21 04/23/21 Unknown History Sertraline [Zoloft] 100 mg PO QDAY 04/23/21 04/23/21 Unknown History ramipriL [Ramipril] 10 mg PO DAILY 04/23/21 04/23/21 Unknown History Active Meds: Active Medications Acetaminophen (Acetaminophen 325 Mg Tab) 650 mg PO Q6H PRN PRN Reason: Pain , Severe (7-10) Last Admin: 04/26/21 18:12 Dose: 650 mg Documented by: Aspirin (Aspirin Ec 81 Mg Tab) 81 mg PO QDAY [facility] Last Admin: 04/27/21 09:18 Dose: 81 mg Documented by: Atorvastatin Calcium (Atorvastatin 20 Mg Tab) 20 mg PO QHS [facility] Last Admin: 04/26/21 21:22 Dose: 20 mg Documented by: Dextrose (Dextrose 50% In Water (25gm) 50 Ml Syringe) 50 ml IV Q30MIN PRN; Protocol PRN Reason: Hypoglycemia Divalproex Sodium (Divalproex Er 500 Mg Tab) 500 mg PO TID [facility] Last Admin: 04/27/21 09:18 Dose: 500 mg Documented by: Insulin Human Isoph/Insulin Regular (Insulin Nph/Regular 70/30 Inj) 15 unit SUB-Q BIDDIAB [facility] Last Admin: 04/27/21 09:18 Dose: 15 unit Documented by: Insulin Human Lispro (Insulin Lispro 100 Unit/Ml) 0 unit SUB-Q ACHS [facility]; Protocol Last Admin: 04/27/21 09:19 Dose: 1 unit Documented by: Lisinopril (Lisinopril 20 Mg Tab) 20 mg PO QDAY [facility] Last Admin: 04/27/21 09:26 Dose: Not Given Documented by: Multivitamins/Minerals (Multivitamins,Ther W-Minerals Tab) 1 each PO QDAY [facility] Last Admin: 04/27/21 09:18 Dose: 1 each Documented by: Pantoprazole Sodium (Pantoprazole 40 Mg Tab) 40 mg PO BID [facility] Last Admin: 04/27/21 09:26 Dose: Not Given Documented by: Sertraline HCl (Sertraline 100 Mg Tab) 100 mg PO QDAY [facility] Last Admin: 04/27/21 09:17 Dose: 100 mg Documented by: Trazodone HCl (Trazodone 50 Mg Tab) 50 mg PO QHS [facility] Last Admin: 04/26/21 21:27 Dose: Not Given Documented by: Results - Results Labs/Vitals: Laboratory Last Values WBC 4.3 K/mm3 (4.5-11.0) L 04/24/21 08:37 RBC 4.78 M/mm3 (3.65-5.03) 04/24/21 08:37 Hgb 13.8 gm/dl (10.1-14.3) 04/24/21 08:37 Hct 42.1 % (30.3-42.9) 04/24/21 08:37 MCV 88 fl (79-97) 04/24/21 08:37 MCH 29 pg (28-32) 04/24/21 08:37 MCHC 33 % (30-34) 04/24/21 08:37 RDW 13.8 % (13.2-15.2) 04/24/21 08:37 Plt Count 218 K/mm3 (140-440) 04/24/21 08:37 Lymph % (Auto) 36.9 % (13.4-35.0) H 04/24/21 08:37 [place] % (Auto) 8.3 % (0.0-7.3) H 04/24/21 08:37 Eos % (Auto) 1.7 % (0.0-4.3) 04/24/21 08:37 Baso % (Auto) 0.3 % (0.0-1.8) 04/24/21 08:37 Lymph # (Auto) 1.6 K/mm3 (1.2-5.4) 04/24/21 08:37 [place] # (Auto) 0.4 K/mm3 (0.0-0.8) 04/24/21 08:37 Eos # (Auto) 0.1 K/mm3 (0.0-0.4) 04/24/21 08:37 Baso # (Auto) 0.0 K/mm3 (0.0-0.1) 04/24/21 08:37 Seg Neutrophils % 52.8 % (40.0-70.0) 04/24/21 08:37 Seg Neutrophils # 2.3 K/mm3 (1.8-7.7) 04/24/21 08:37 Sodium 139 mmol/L (137-145) 04/24/21 08:37 Potassium 4.3 mmol/L (3.6-5.0) 04/24/21 08:37 Chloride 100.3 mmol/L (98-107) 04/24/21 08:37 Carbon Dioxide 24 mmol/L (22-30) 04/24/21 08:37 Anion Gap 19 mmol/L 04/24/21 08:37 BUN 10 mg/dL (7-17) 04/24/21 08:37 Creatinine 0.5 mg/dL (0.6-1.2) L 04/24/21 08:37 Estimated GFR > 60 ml/min 04/24/21 08:37 BUN/Creatinine Ratio 20 % 04/24/21 08:37 Glucose 250 mg/dL (65-100) H 04/24/21 08:37 POC Glucose 194 mg/dL (70-105) H 04/27/21 06:25 Hemoglobin A1c 7.5 % (4-6) H 04/24/21 08:37 Calcium 9.5 mg/dL (8.4-10.2) 04/24/21 08:37 Total Bilirubin 0.40 mg/dL (0.1-1.2) 04/24/21 08:37 AST 9 units/L (5-40) 04/24/21 08:37 ALT 10 units/L (7-56) 04/24/21 08:37 Alkaline Phosphatase 79 units/L (35-129) 04/24/21 08:37 Total Protein 7.0 g/dL (6.3-8.2) 04/24/21 08:37 Albumin 4.2 g/dL (3.9-5) 04/24/21 08:37 Albumin/Globulin Ratio 1.5 % 04/24/21 08:37 Triglycerides 274 mg/dL (2-149) H 04/24/21 08:37 Cholesterol 199 mg/dL (50-199) 04/24/21 08:37 LDL Cholesterol Direct 128 mg/dL (50-130) 04/24/21 08:37 HDL Cholesterol 33 mg/dL (40-59) L 04/24/21 08:37 Cholesterol/HDL Ratio 6.03 % 04/24/21 08:37 TSH 4.160 mlU/mL (0.270-4.200) 04/24/21 08:37 Free T4 0.90 ng/dL (0.76-1.46) 04/24/21 08:37 Hepatitis A IgM Ab Non-reactive (NonReactive) 04/24/21 08:37 Hep Bs Antigen Nonreactive (Negative) 04/24/21 08:37 Hep B Core IgM Ab Non-reactive (NonReactive) 04/24/21 08:37 Hepatitis C Antibody Non-reactive (NonReactive) 04/24/21 08:37 Last Vital Signs Temp 99.2 F 04/26/21 19:10 Pulse 81 04/26/21 19:10 Resp 18 04/26/21 19:10 BP 146/69 04/26/21 19:10 Pulse Ox 86 04/26/21 19:10
[2021-04-27] MEDS: HALOPERIDOL 1 MG TAB PO SCH ×3 (12:25→21:27)
[2021-04-27 12:52] LABS: Bacteria,Urine 1+ /HPF (Negative); Bilirubin,Urine NEG (Negative); Blood,Urine NEG (Negative); Color,Urine Yellow (Yellow); Protein,Urine <15 mg/dL mg/dL (Negative); Urobilinogen,Urine < 2.0 mg/dL (<2.0)
[2021-04-27 12:55] LABS: WBC,Urine < 1.0 /HPF (0.0-6.0)
--- NOTE | 2021-04-27 15:12 | Progress Note ---
Assessment and Plan - Patient Problems (1) HTN (hypertension) Current Visit: Yes Status: Acute Qualifiers: Hypertension type: primary hypertension Qualified Code(s): I10 - Essential (primary) hypertension Plan to address problem: Monitor blood pressure every shift, continue medical management. (2) HLD (hyperlipidemia) Current Visit: Yes Status: Acute Qualifiers: Hyperlipidemia type: mixed hyperlipidemia Qualified Code(s): E78.2 - Mixed hyperlipidemia Plan to address problem: Lipid panel, statin therapy, low-cholesterol diet, risk factor reduction (3) GERD (gastroesophageal reflux disease) Current Visit: Yes Status: Acute Plan to address problem: PPI therapy, supportive care. (4) Hypothyroidism Current Visit: Yes Status: Acute Qualifiers: Hypothyroidism type: unspecified Qualified Code(s): E03.9 - Hypothyroidism, unspecified Plan to address problem: Outpatient follow-up with primary care physician, supportive care. History Interval history: 56 YO [place] with HTN, HLD, DM, Hypothyroidism, GERD admitted to [facility] for psychiatric stabilization. Patient seen and evaluated in the recreation room. No reported nursing events. Patient denies pain. Hospitalist Physical - Constitutional Vitals: Temp Pulse Resp BP Pulse Ox 99.2 F 81 18 146/69 86 04/26/21 19:10 04/26/21 19:10 04/26/21 19:10 04/26/21 19:10 04/26/21 19:10 General appearance: Present: no acute distress - EENT Eyes: Present: PERRL, EOM intact ENT: hearing intact - Neck Neck: Present: supple - Respiratory Respiratory effort: normal Respiratory: bilateral: CTA - Cardiovascular Rhythm: regular Heart Sounds: Present: S1 & S2 - Extremities Extremities: no ischemia Peripheral Pulses: within normal limits - Abdominal General gastrointestinal: soft, non-tender, non-distended - Integumentary Integumentary: Present: clear, dry - Psychiatric Psychiatric: cooperative - Neurologic Neurologic: CNII-XII intact Results - Labs CBC & Chem 7: 04/24/21 08:37 04/24/21 08:37 Labs: Laboratory Last Values WBC 4.3 K/mm3 (4.5-11.0) L 04/24/21 08:37 RBC 4.78 M/mm3 (3.65-5.03) 04/24/21 08:37 Hgb 13.8 gm/dl (10.1-14.3) 04/24/21 08:37 Hct 42.1 % (30.3-42.9) 04/24/21 08:37 MCV 88 fl (79-97) 04/24/21 08:37 MCH 29 pg (28-32) 04/24/21 08:37 MCHC 33 % (30-34) 04/24/21 08:37 RDW 13.8 % (13.2-15.2) 04/24/21 08:37 Plt Count 218 K/mm3 (140-440) 04/24/21 08:37 Lymph % (Auto) 36.9 % (13.4-35.0) H 04/24/21 08:37 [place] % (Auto) 8.3 % (0.0-7.3) H 04/24/21 08:37 Eos % (Auto) 1.7 % (0.0-4.3) 04/24/21 08:37 Baso % (Auto) 0.3 % (0.0-1.8) 04/24/21 08:37 Lymph # (Auto) 1.6 K/mm3 (1.2-5.4) 04/24/21 08:37 [place] # (Auto) 0.4 K/mm3 (0.0-0.8) 04/24/21 08:37 Eos # (Auto) 0.1 K/mm3 (0.0-0.4) 04/24/21 08:37 Baso # (Auto) 0.0 K/mm3 (0.0-0.1) 04/24/21 08:37 Seg Neutrophils % 52.8 % (40.0-70.0) 04/24/21 08:37 Seg Neutrophils # 2.3 K/mm3 (1.8-7.7) 04/24/21 08:37 Sodium 139 mmol/L (137-145) 04/24/21 08:37 Potassium 4.3 mmol/L (3.6-5.0) 04/24/21 08:37 Chloride 100.3 mmol/L (98-107) 04/24/21 08:37 Carbon Dioxide 24 mmol/L (22-30) 04/24/21 08:37 Anion Gap 19 mmol/L 04/24/21 08:37 BUN 10 mg/dL (7-17) 04/24/21 08:37 Creatinine 0.5 mg/dL (0.6-1.2) L 04/24/21 08:37 Estimated GFR > 60 ml/min 04/24/21 08:37 BUN/Creatinine Ratio 20 % 04/24/21 08:37 Glucose 250 mg/dL (65-100) H 04/24/21 08:37 POC Glucose 189 mg/dL (70-105) H 04/27/21 11:17 Hemoglobin A1c 7.5 % (4-6) H 04/24/21 08:37 Calcium 9.5 mg/dL (8.4-10.2) 04/24/21 08:37 Total Bilirubin 0.40 mg/dL (0.1-1.2) 04/24/21 08:37 AST 9 units/L (5-40) 04/24/21 08:37 ALT 10 units/L (7-56) 04/24/21 08:37 Alkaline Phosphatase 79 units/L (35-129) 04/24/21 08:37 Total Protein 7.0 g/dL (6.3-8.2) 04/24/21 08:37 Albumin 4.2 g/dL (3.9-5) 04/24/21 08:37 Albumin/Globulin Ratio 1.5 % 04/24/21 08:37 Triglycerides 274 mg/dL (2-149) H 04/24/21 08:37 Cholesterol 199 mg/dL (50-199) 04/24/21 08:37 LDL Cholesterol Direct 128 mg/dL (50-130) 04/24/21 08:37 HDL Cholesterol 33 mg/dL (40-59) L 04/24/21 08:37 Cholesterol/HDL Ratio 6.03 % 04/24/21 08:37 TSH 4.160 mlU/mL (0.270-4.200) 04/24/21 08:37 Free T4 0.90 ng/dL (0.76-1.46) 04/24/21 08:37 Urine Color Yellow (Yellow) 04/27/21 09:49 Urine Turbidity Clear (Clear) 04/27/21 09:49 Urine pH 7.0 (5.0-7.0) 04/27/21 09:49 Ur Specific [place] 1.004 (1.003-1.030) 04/27/21 09:49 Urine Protein <15 mg/dl mg/dL (Negative) 04/27/21 09:49 Urine Glucose (UA) Neg mg/dL (Negative) 04/27/21 09:49 Urine Ketones Neg mg/dL (Negative) 04/27/21 09:49 Urine Blood Neg (Negative) 04/27/21 09:49 Urine Nitrite Neg (Negative) 04/27/21 09:49 Urine Bilirubin Neg (Negative) 04/27/21 09:49 Urine Urobilinogen < 2.0 mg/dL (<2.0) 04/27/21 09:49 Ur Leukocyte Esterase Neg (Negative) 04/27/21 09:49 Urine WBC (Auto) < 1.0 /HPF (0.0-6.0) 04/27/21 09:49 Urine RBC (Auto) 1.0 /HPF (0.0-6.0) 04/27/21 09:49 U Epithel Cells (Auto) 1.0 /HPF (0-13.0) 04/27/21 09:49 Urine Bacteria (Auto) 1+ /HPF (Negative) 04/27/21 09:49 Valproic Acid 58.5 ug/mL (50-100) 04/27/21 09:19 Hepatitis A IgM Ab Non-reactive (NonReactive) 04/24/21 08:37 Hep Bs Antigen Nonreactive (Negative) 04/24/21 08:37 Hep B Core IgM Ab Non-reactive (NonReactive) 04/24/21 08:37 Hepatitis C Antibody Non-reactive (NonReactive) 04/24/21 08:37 Brown/IV: Voiding Method Toilet Active Medications - Current Medications Current Medications: Generic Name Dose Route Start Last Admin Trade Name Freq PRN Reason Stop Dose Admin Acetaminophen 650 mg 04/23/21 13:00 04/26/21 18:12 Acetaminophen 325 Mg Tab PO 650 mg Q6H PRN Administration Pain , Severe (7-10) Aspirin 81 mg 04/23/21 10:00 04/27/21 09:18 Aspirin Ec 81 Mg Tab PO 81 mg QDAY MOUSTAPHA Administration Atorvastatin Calcium 20 mg 04/23/21 22:00 04/26/21 21:22 Atorvastatin 20 Mg Tab PO 20 mg QHS MOUSTAPHA Administration Dextrose 50 ml 04/23/21 14:00 Dextrose 50% In Water (25gm) 50 Ml Syringe IV Q30MIN PRN Hypoglycemia Protocol Divalproex Sodium 500 mg 04/23/21 14:00 04/27/21 14:00 Divalproex Er 500 Mg Tab PO Not Given TID MOUSTAPHA Haloperidol 0.5 mg 04/27/21 11:00 04/27/21 12:37 Haloperidol 1 Mg Tab PO Not Given BID [facility]OUSTAP[facility] Insulin Human Isoph/Insulin Regular 15 unit 04/24/21 09:00 04/27/21 09:18 Insulin Nph/Regular 70/30 Inj SUB-Q 15 unit BIDDIAB MOUSTAPHA Administration Insulin Human Lispro 0 unit 04/23/21 16:30 04/27/21 12:26 Insulin Lispro 100 Unit/Ml SUB-Q 1 unit ACHS MOUSTAP[facility] Administration Protocol Lisinopril 20 mg 04/23/21 10:00 04/27/21 09:26 Lisinopril 20 Mg Tab PO Not Given QDAY MOUSTAPHA Multivitamins/Minerals 1 each 04/23/21 10:00 04/27/21 09:18 Multivitamins,Ther W-Minerals Tab PO 1 each QDAY MOUSTAPHA Administration Pantoprazole Sodium 40 mg 04/23/21 10:00 04/27/21 09:26 Pantoprazole 40 Mg Tab PO Not Given BID MOUSTAPHA Sertraline HCl 100 mg 04/23/21 10:00 04/27/21 09:17 Sertraline 100 Mg Tab PO 100 mg QDAY MOUSTAP[facility] Administration Trazodone HCl 50 mg 04/24/21 22:00 04/26/21 21:27 Trazodone 50 Mg Tab PO Not Given QHS MOUSTAPHA
[2021-04-27] MEDS ORDERED: levoFLOXacin 500 MG TAB PO SCH (18:00)
[2021-04-27] MEDS: traZODone 50 MG TAB PO SCH (21:27)
[2021-04-27] MEDS: ACETAMINOPHEN 325 MG TAB PO PRN (21:57)
[2021-04-28] MEDS: INSULIN LISPRO 100 UNIT/ML SUB-Q SCH ×4 (07:49→17:17)
[2021-04-28] MEDS: INSULIN NPH/REGULAR 70/30 INJ SUB-Q SCH ×3 (07:49→17:17)
[2021-04-28 08:18] VITALS: BP 156/76
[2021-04-28] MEDS: DIVALPROEX ER 500 MG TAB PO SCH ×2 (09:17→13:56)
[2021-04-28] MEDS: SERTRALINE 100 MG TAB PO SCH (09:17)
[2021-04-28] MEDS: ASPIRIN EC 81 MG TAB PO SCH (09:17)
[2021-04-28] MEDS: MULTIVITAMINS,THER W-MINERALS TAB PO SCH (09:17)
[2021-04-28] MEDS: LISINOPRIL 20 MG TAB PO SCH (09:26)
[2021-04-28] MEDS: HALOPERIDOL 1 MG TAB PO SCH (09:27)
[2021-04-28] MEDS: PANTOPRAZOLE 40 MG TAB PO SCH (09:27)
--- NOTE | 2021-04-28 10:47 | Discharge Summary ---
Providers - Providers Date of Admission: 04/23/21 00:20 Date of discharge: 04/28/21 Attending physician: CARISA VALDERRAMA MD 04/22/21 17:31 Consult to Physician [CONS] Routine Comment: Consulting Provider: PARAS SAM Physician Instructions: Reason For Exam: manage existing medical conditions Primary care physician: JLUIS ZHOU Hospitalization Reason for admission: delusional Admitting Diagnosis: F31.9 - BIPOLAR DISORDER, UNSPECIFIED Hospital course: The patient was provided inpatient psychiatric treatment with safe and supportive care, medication adjustment, adverse effect monitoring, medical evaluations, medical treatments, assessment and psycho-education. The patient's mood, cognition, behavior, moral support are improved and stabilized. St the time of discharge, the patient had no endangering behavior and no debilitating adverse effects. The patient agreed on potential consequences of no treatment and gave informed consent. 04/28 The patient is calm, and cooperative. She denies SI/HI or hallucinations, stating "I never was any of that." She is asking about her abx for her UTI. Disposition: HOME / SELF CARE / HOMELESS Allergies/Adverse Reactions: Allergies ragweed pollen Allergy (Verified 04/23/21 00:58) Unknown acetaminophen [From Percocet] Adverse Reaction (Verified 04/23/21 00:58) Unknown amoxicillin Adverse Reaction (Verified 04/23/21 00:58) Unknown aripiprazole [From Abilify] Adverse Reaction (Verified 04/23/21 00:58) Unknown cephalexin Adverse Reaction (Verified 04/23/21 00:58) Unknown heparin Adverse Reaction (Verified 04/23/21 00:58) Unknown lithium Adverse Reaction (Verified 04/23/21 00:58) Unknown olanzapine [From Zyprexa] Adverse Reaction (Verified 04/23/21 00:58) Unknown oxcarbazepine [From Trileptal] Adverse Reaction (Verified 04/23/21 00:58) Unknown oxycodone [From Percocet] Adverse Reaction (Verified 04/23/21 00:58) Unknown Penicillins Adverse Reaction (Verified 04/23/21 00:58) Unknown quetiapine [From Seroquel] Adverse Reaction (Verified 04/23/21 00:58) Unknown risperidone Adverse Reaction (Verified 04/23/21 00:58) Unknown valacyclovir [From Valtrex] Adverse Reaction (Verified 04/23/21 00:58) Unknown ziprasidone [From Geodon] Adverse Reaction (Verified 04/23/21 00:58) Unknown Vital Signs: Last Vital Signs Temp 98.5 F 04/28/21 07:59 Pulse 70 04/28/21 09:26 Resp 18 04/28/21 07:59 BP 156/76 04/28/21 09:26 Pulse Ox 94 04/28/21 07:59 Last Lab: Laboratory Last Values WBC 4.3 K/mm3 (4.5-11.0) L 04/24/21 08:37 RBC 4.78 M/mm3 (3.65-5.03) 04/24/21 08:37 Hgb 13.8 gm/dl (10.1-14.3) 04/24/21 08:37 Hct 42.1 % (30.3-42.9) 04/24/21 08:37 MCV 88 fl (79-97) 04/24/21 08:37 MCH 29 pg (28-32) 04/24/21 08:37 MCHC 33 % (30-34) 04/24/21 08:37 RDW 13.8 % (13.2-15.2) 04/24/21 08:37 Plt Count 218 K/mm3 (140-440) 04/24/21 08:37 Lymph % (Auto) 36.9 % (13.4-35.0) H 04/24/21 08:37 [place] % (Auto) 8.3 % (0.0-7.3) H 04/24/21 08:37 Eos % (Auto) 1.7 % (0.0-4.3) 04/24/21 08:37 Baso % (Auto) 0.3 % (0.0-1.8) 04/24/21 08:37 Lymph # (Auto) 1.6 K/mm3 (1.2-5.4) 04/24/21 08:37 [place] # (Auto) 0.4 K/mm3 (0.0-0.8) 04/24/21 08:37 Eos # (Auto) 0.1 K/mm3 (0.0-0.4) 04/24/21 08:37 Baso # (Auto) 0.0 K/mm3 (0.0-0.1) 04/24/21 08:37 Seg Neutrophils % 52.8 % (40.0-70.0) 04/24/21 08:37 Seg Neutrophils # 2.3 K/mm3 (1.8-7.7) 04/24/21 08:37 Sodium 139 mmol/L (137-145) 04/24/21 08:37 Potassium 4.3 mmol/L (3.6-5.0) 04/24/21 08:37 Chloride 100.3 mmol/L (98-107) 04/24/21 08:37 Carbon Dioxide 24 mmol/L (22-30) 04/24/21 08:37 Anion Gap 19 mmol/L 04/24/21 08:37 BUN 10 mg/dL (7-17) 04/24/21 08:37 Creatinine 0.5 mg/dL (0.6-1.2) L 04/24/21 08:37 Estimated GFR > 60 ml/min 04/24/21 08:37 BUN/Creatinine Ratio 20 % 04/24/21 08:37 Glucose 250 mg/dL (65-100) H 04/24/21 08:37 POC Glucose 192 mg/dL (70-105) H 04/28/21 06:08 Hemoglobin A1c 7.5 % (4-6) H 04/24/21 08:37 Calcium 9.5 mg/dL (8.4-10.2) 04/24/21 08:37 Total Bilirubin 0.40 mg/dL (0.1-1.2) 04/24/21 08:37 AST 9 units/L (5-40) 04/24/21 08:37 ALT 10 units/L (7-56) 04/24/21 08:37 Alkaline Phosphatase 79 units/L (35-129) 04/24/21 08:37 Total Protein 7.0 g/dL (6.3-8.2) 04/24/21 08:37 Albumin 4.2 g/dL (3.9-5) 04/24/21 08:37 Albumin/Globulin Ratio 1.5 % 04/24/21 08:37 Triglycerides 274 mg/dL (2-149) H 04/24/21 08:37 Cholesterol 199 mg/dL (50-199) 04/24/21 08:37 LDL Cholesterol Direct 128 mg/dL (50-130) 04/24/21 08:37 HDL Cholesterol 33 mg/dL (40-59) L 04/24/21 08:37 Cholesterol/HDL Ratio 6.03 % 04/24/21 08:37 TSH 4.160 mlU/mL (0.270-4.200) 04/24/21 08:37 Free T4 0.90 ng/dL (0.76-1.46) 04/24/21 08:37 Urine Color Yellow (Yellow) 04/27/21 09:49 Urine Turbidity Clear (Clear) 04/27/21 09:49 Urine pH 7.0 (5.0-7.0) 04/27/21 09:49 Ur Specific [place] 1.004 (1.003-1.030) 04/27/21 09:49 Urine Protein <15 mg/dl mg/dL (Negative) 04/27/21 09:49 Urine Glucose (UA) Neg mg/dL (Negative) 04/27/21 09:49 Urine Ketones Neg mg/dL (Negative) 04/27/21 09:49 Urine Blood Neg (Negative) 04/27/21 09:49 Urine Nitrite Neg (Negative) 04/27/21 09:49 Urine Bilirubin Neg (Negative) 04/27/21 09:49 Urine Urobilinogen < 2.0 mg/dL (<2.0) 04/27/21 09:49 Ur Leukocyte Esterase Neg (Negative) 04/27/21 09:49 Urine WBC (Auto) < 1.0 /HPF (0.0-6.0) 04/27/21 09:49 Urine RBC (Auto) 1.0 /HPF (0.0-6.0) 04/27/21 09:49 U Epithel Cells (Auto) 1.0 /HPF (0-13.0) 04/27/21 09:49 Urine Bacteria (Auto) 1+ /HPF (Negative) 04/27/21 09:49 Valproic Acid 58.5 ug/mL (50-100) 04/27/21 09:19 Hepatitis A IgM Ab Non-reactive (NonReactive) 04/24/21 08:37 Hep Bs Antigen Nonreactive (Negative) 04/24/21 08:37 Hep B Core IgM Ab Non-reactive (NonReactive) 04/24/21 08:37 Hepatitis C Antibody Non-reactive (NonReactive) 04/24/21 08:37 Core Measure Documentation - Palliative Care Palliative Care/ Comfort Measures: Not Applicable - Core Measures Any of the following diagnoses?: none Exam - Constitutional Vitals: Temp Pulse Resp BP Pulse Ox 98.5 F 70 18 156/76 94 04/28/21 07:59 04/28/21 09:26 04/28/21 07:59 04/28/21 09:26 04/28/21 07:59 General appearance: Present: no acute distress - EENT ENT: hearing intact, clear oral mucosa - Neck Neck: Present: normal ROM - Respiratory Respiratory effort: normal Plan Activity: advance as tolerated Weight Bearing Status: Weight Bear as Tolerated Care Plan Goals: Maintain good and stable mental health Plan of Treatment: The patient should be compliant with medications, not to use drugs, and not to drink alcohol. The patient understands that if suicidal ideas, homicidal ideas or any endangering feeling arise, the patient should seek assistance including, but not limited to crisis hotline, and emergency room. Assessment: Bipolar Disorder Follow up with: JLUIS ZHOU MD [Primary Care Provider] - 7 Days Prescriptions: traZODone [Desyrel] 50 mg PO QHS #30 tablet haloperidoL [Haldol] 0.5 mg PO BID #60 tablet levoFLOXacin [Levaquin TAB] 500 mg PO Q24H #2 tablet Sertraline [Zoloft] 100 mg PO QDAY #30
== END 2021-04-28 17:47 | disposition home or self-care (01) | DRG 885 ==
LOC: 3A 16:59 → UNDOADMIN 16:59 → 5A 04-23 00:20
PROVIDERS: ADMIT Psychiatry & Neurology Psychiatry; ATTEND Psychiatry & Neurology Psychiatry
DX: F31.9 Bipolar disorder, unspecified (principal); F23 Brief psychotic disorder; Z88.8 Allergy status to other drugs, medicaments and biological substances; E11.9 Type 2 diabetes mellitus without complications; I10 Essential (primary) hypertension; E03.9 Hypothyroidism, unspecified; E78.2 Mixed hyperlipidemia; K21.9 Gastro-esophageal reflux disease without esophagitis
CPT/HCPCS: 36415; 80053; 80061; 80074; 80164; 81001; 82962; 83036; 84439; 84443; 85025; G0378; Q0177; Q9967; J1815